=== PATIENT | male | born 1955 | race Caucasian/White ===

== ENCOUNTER → 2018-05-28 | Outpatient (REF) | payer MEDICARE ==
[2014-04-01 17:49] VITALS: BMI 26.7
[~2018-05-28] MED LIST: ALBU8.5H IH; APIX2.5T PO; APIX5TAB PO; ASPI81TA94 PO; ATOR20TA22 PO; ATOR20TA65 PO; ATOR40TA69 PO; BUP100 FT; CAFF200T69 PO; CIT20 PO; CITA-141 PO; DIGO125T73 PO; DIPH-618 PO; DOCU100T19 PO; DULO30CA35 PO; DULO30CA6 PO; ENOX100D5 SQ; GABA-503 PO; GABA-549 PO; HYDR-3250 FT; HYDR2TAB41 PO; IVAB5TAB; LEV500 PO; LEVE100034 PO; LEVE500T73 PO; LISI-362 PO; LISI-374 PO; LOR5/325 PO; METO-253 PO; METO1TAB28 PO; METO1TAB40 PO; METO25TA93 PO; METO50TA19 PO; NEBI10TA4 FT; NICO1PAT86 TD; NIT4 SL; OXYC-865 PO; PANT40TA65 PO; PER PO; QUET200T PO; QUET200T29 PO; QUET25TA31 PO; RIVA15TA PO; RIVA20TA PO; TAMS0.4C25 PO; TAMS0.4C76 PO; WARF-1 PO
[2018-05-28 11:34] LABS: INR 2.69
== END ==
LOC: ZZSENDIN 11:18
PROVIDERS: ATTEND Physician Assistant
DX: D68.59 Other primary thrombophilia (principal)
CPT/HCPCS: 85610